=== PATIENT | male | born 2000 | race African-American/Black ===

== ENCOUNTER 2021-01-24 15:30 | Emergency (ER) | payer MEDICAID, OTHER ==
[~2021-01-24] VITALS: Ht 185.4 cm; Wt 90.7 kg
[2021-01-24] MEDS ORDERED: cefTRIAXone SOD 500 MG VL IM ONE (16:45)
[2021-01-24] MEDS ORDERED: AZITHROMYCIN 250 MG TAB PO ONE (16:45)
[2021-01-24] MEDS ORDERED: PENICILLIN G BENZ 1200000 UNITS/2 ML SYRG IM ONE (16:45)
[2021-01-24 17:08] VITALS: BP 115/61
== END 2021-01-24 19:32 | disposition home or self-care (01) ==
LOC: ER 15:30
DX: Z20.2 Contact with and (suspected) exposure to infections with a predominantly sexual mode of transmission (principal)
CPT/HCPCS: 96372; 99284; J0561; J0696